=== PATIENT | female | born 1975 | race Caucasian/White ===

== ENCOUNTER → 2021-05-25 | Outpatient (CLI) | payer OTHER | LOC: HEART 5 14:09 | DX: R06.02 Shortness of breath (principal); R94.2 Abnormal results of pulmonary function studies | CPT/HCPCS: 71046; 94010 ==

== ENCOUNTER → 2021-06-02 | Outpatient (CLI) | payer OTHER | LOC: SLEEP 14:14 | DX: G47.33 Obstructive sleep apnea (adult) (pediatric) (principal); R09.02 Hypoxemia | CPT/HCPCS: 95810 ==